=== PATIENT | female | born 1980 | race African-American/Black ===

== ENCOUNTER 2016-08-25 10:32 | Emergency (ER) | payer BC, OTHER ==
[2016-08-25 10:43] VITALS: BP 141/72; PULSE 109; TEMP 99.5; BMI 40.1
[2016-08-25] MEDS ORDERED: ACETAMINOPHEN 1000 MG/100 ML VIAL (NON FORMULARY) IVPB ONE (11:51)
[2016-08-25] MEDS ORDERED: ONDANSETRON 4 MG/2 ML VIAL IVPUSH ONE (11:51)
--- NOTE | 2016-08-25 11:52 | PDOC ---
History of Present Illness - General History Source: Patient Exam Limitations: No Limitations - History of Present Illness Initial Comments: 08/25/16 10:59 The patient is a 36-year-old woman, accompanied by her friend, with a past medical history of diverticulitis, who presents to the emergency department via walk-in for further evaluation of abdominal pain. She states that her symptoms started approximately 1 week ago. She was experiencing left sided abdominal pain that radiates to her back with a 10/10 in severity with noted exacerbation of her pain with minimal musculoskeletal maneuvers. No associated symptoms of nausea, vomiting and diarrhea at the time. Patient was ultimately evaluated at [facility] for which she underwent and abdominal and pelvic CT with contrast which was indicative for diverticulitis. Patient was placed on Flagyl. Post discharge, she reports that her abdominal pain worsen, as she started to develop nausea, diarrhea and vomiting, however, she admits she was drinking alcohol while taking Flagyl. She noted streaks of blood upon emesis. No clots. No hematochezia. No fever, chills, generalized weakness, cough, shortness of breath, chest pain, lightheadedness, dizziness, palpitations. Allergies: No Known Past Surgical History: Caesarian Section x2 Social History: No tobacco or recreational drug use. Occasional EtOH use. Primary Care Physician: N/A <Ayde Schreiber - Last Filed: 08/25/16 15:39> <Magi Stern - Last Filed: 08/25/16 16:15> - General Chief Complaint: Pain Stated Complaint: ABD/BACK PAIN Time Seen by Provider: 08/25/16 10:56 Past History <Ayde Schreiber - Last Filed: 08/25/16 15:39> - Past Medical History Asthma: No Cancer: No Cardiac Disorders: No Diabetes: No GI Disorders: Yes (divertic) HTN: No Seizures: No Thyroid Disease: No - Psycho/Social/Smoking Cessation Hx Anxiety: No Suicidal Ideation: No Smoking History: Never smoked Have you smoked in the past 12 months: No Information on smoking cessation initiated: No Hx Alcohol Use: No Drug/Substance Use Hx: No Substance Use Type: None Hx Substance Use Treatment: No <Magi Stern - Last Filed: 08/25/16 16:15> - Past Medical History Allergies/Adverse Reactions: Allergies Allergy/AdvReac Type Severity Reaction Status Date / Time No Known Allergies Allergy Verified 08/25/16 10:33 Home Medications: Ambulatory Orders Dicyclomine HCl [Bentyl -] 10 mg PO TID PRN #21 capsule 08/25/16 Ondansetron HCl [Zofran] 4 mg PO BID PRN #10 tablet 08/25/16 Review of Systems - Review of Systems Able to Perform ROS?: Yes Comments:: 08/25/16 10:59 GENERAL/CONSTITUTIONAL: No: fever, chills, weakness, loss of appetite. HEAD, EYES, EARS, NOSE AND THROAT: No: change in vision, ear pain, discharge, sore throat, throat swelling. CARDIOVASCULAR: No: chest pain, lightheadedness, palpitations, syncope RESPIRATORY: No: cough, shortness of breath, wheezing, hemoptysis, stridor. GASTROINTESTINAL: Yes: Abdominal Pain. Nausea. Vomiting. Diarrhea. No: rectal bleeding, constipation. GENITOURINARY: No: dysuria, hematuria, frequency, urgency, flank pain. MUSCULOSKELETAL: No: back pain, neck pain, joint pain, muscle swelling or pain SKIN AND BREASTS: No: lesions, pallor, rash or easy bruising. NEUROLOGIC: No: headache, vertigo, paresthesias, weakness ENDOCRINE: No: unexplained weight gain or loss HEMATOLOGIC/LYMPHATIC: No: anemia, easy bleeding, swelling nodes <Ayde Schreiber - Last Filed: 08/25/16 15:39> *Physical Exam - Vital Signs Last Vital Signs Temp Pulse Resp BP Pulse Ox 99.5 F 109 H 18 141/72 98 08/25/16 10:33 08/25/16 10:33 08/25/16 10:33 08/25/16 10:33 08/25/16 10:33 - Physical Exam Comments: 08/25/16 10:59 GENERAL: The patient is in no acute distress. HEAD: Normal with no signs of trauma. EYES: PERRLA, EOMI, sclera anicteric, conjunctiva clear. ENT: Ears normal, nares patent, oropharynx clear without exudates. Moist mucous membranes. NECK: Normal range of motion, supple without lymphadenopathy, JVD, or masses. LUNGS: Breath sounds equal, clear to auscultation bilaterally. No wheezes, and no crackles. HEART:Regular rate and rhythm, normal S1 and S2 without murmur, rub or gallop. ABDOMEN: Soft, there is severe left sided abdominal tenderness to palpation with voluntary guarding. No rebound. Normoactive bowel sounds. EXTREMITIES: Normal range of motion, no edema. No clubbing or cyanosis. No erythema, or tenderness. NEUROLOGICAL: Cranial nerves II through XII grossly intact. Normal speech. No focal neurological deficits. MUSCULOSKELETAL: Back non-tender to palpation, no CVA tenderness SKIN: Warm, Dry, normal turgor, no rashes or lesions noted. <Ayde Schreiber - Last Filed: 08/25/16 15:39> - Vital Signs Last Vital Signs Temp Pulse Resp BP Pulse Ox 99.5 F 109 H 18 141/72 98 08/25/16 10:33 08/25/16 10:33 08/25/16 10:33 08/25/16 10:33 08/25/16 10:33 <Magi Stern - Last Filed: 08/25/16 16:15> Heart Score/ECG Review #1 ECG reviewed & interpreted by me at: 16:04 08/25/16 16:04 Twelve-lead EKG was performed and reviewed by me. There is normal sinus rhythm with a normal rate of 93bpm. The axis is normal. The intervals are normal - pr: 152ms, QRS:78ms, QTc:437ms. There are no ST elevations or depressions. Non specific T wave flattening <Magi Stern - Last Filed: 08/25/16 16:15> ED Treatment Course - LABORATORY CBC & Chemistry Diagram: 08/25/16 12:25 08/25/16 12:25 - RADIOLOGY Radiograph Interpretation: 08/25/16 15:39 EXAM: CT/ABDOMEN PELVIS CT W/O CONTR Interpreted by Dr. Ross Olivo IMPRESSION: Sequential axial images were obtained from the domes of the diaphragm through the symphysis pubis following the administration of oral contrast material. The lung bases are clear. There is a trace amount of pericardial fluid present. The liver is normal in size. It is hypodense in texture consistent with diffuse fatty infiltration. No mass lesions are identified within the liver. The spleen, pancreas, adrenal glands and kidneys demonstrate no significant abnormalities. There is no evidence of intra- abdominal or retroperitoneal lymphadenopathy or fluid collections. There is no evidence of pneumoperitoneum, bowel obstruction or intra-abdominal abscess. There is no CT evidence of acute appendicitis or diverticulitis. Examination of the pelvis demonstrates no evidence of pelvic masses, fluid collections or lymphadenopathy. There is no evidence of acute bony pathology. <SchreiberAyde angel - Last Filed: 08/25/16 15:39> - LABORATORY CBC & Chemistry Diagram: 08/25/16 12:25 08/25/16 12:25 <Magi Stern - Last Filed: 08/25/16 16:15> Medical Decision Making - Medical Decision Making 08/25/16 11:51 A portion of this note was documented by scribe services under my direction. I have reviewed the details of the note, within reason, and agree with the documentation with the following case summary and management plan written by me. Nursing documentation reviewed and incorporated into medical decision making This is a 36-year-old female with no significant past medical history who presents emergency department with a complaint of severe left lower quadrant pain and tenderness. Patient states that her symptoms began approximately 6 days ago. She was seen at an outside hospital where CT scan was performed and was consistent with diverticulitis. After leaving the hospital she was placed on 2 antibiotics (presumably Cipro and Flagyl). Patient did have alcohol 3 days ago with her antibiotic. Since Thursday she's noted vomiting, diarrhea. She's had no fevers or chills. She has noted streaks of blood in both the vomiting and diarrhea. She is concerned because she has had more severe left lower quadrant pain. Her symptoms have not improved despite taking antibiotics. She was supposed to follow up with a GI doctor 2 days ago but could not due to work. Impression: Diverticulitis (simple versus complicated), colitis, stone Will do labs, CT to evaluate for perforation versus abscess Will give IV fluids. Will give Zofran 08/25/16 13:15 Laboratory Tests 08/25/16 08/25/16 12:25 12:25 WBC 8.2 Hgb 12.8 Hct 40.2 Plt Count 257 Neutrophils % 86.9 H D Lymphocytes % 8.9 D Urine Blood Negative Urine Nitrite Negative Ur Leukocyte Esterase Negative 08/25/16 14:59 Laboratory Tests 08/25/16 12:25 Urine Ketones Negative Urine Blood Negative Ur Leukocyte Esterase Negative 08/25/16 15:00 Laboratory Tests 08/25/16 12:25 BUN [address] 08/25/16 16:03 CT of the abdomen and pelvis: 1. Trace pericardial effusion 2. Fatty infiltration of the liver 3. no acute intra-abdominal pathology 08/25/16 16:05 I have explained to patient that she is welcome to stay in the hospital for parenteral medications for nausea vomiting and abdominal pain. Patient would rather go home. Will discharge her with Bentyl and Zofran. I've asked patient to stay hydrated as much as possible 08/25/16 16:07 I discussed the physical exam findings, ancillary test results and final diagnoses with the patient. I answered all of the patient's questions. The patient was satisfied with the care received and felt comfortable with the discharge plan and treatment plan. The patient will call their primary care physician within 24 hours to arrange follow-up and will return to the Emergency Department with any new, persistent or worsening symptoms. <Magi Stern - Last Filed: 08/25/16 16:15> *DC/Admit/Observation/Transfer - Attestations Scribe Attestion: 08/25/16 10:59 Documentation prepared by Ayde Schreiber, acting as medical dosimetrist for Magi Stern MD. <Ayde Schreiber - Last Filed: 08/25/16 15:39> - Discharge Dispostion Admit: No <Magi Stern - Last Filed: 08/25/16 16:15> Diagnosis at time of Disposition: Gastroenteritis, Vomiting and diarrhea - Discharge Dispostion Disposition: HOME Condition at time of disposition: Stable - Prescriptions Prescriptions: Dicyclomine HCl [Bentyl -] 10 mg PO TID PRN #21 capsule PRN Reason: abdominal pain Ondansetron HCl [Zofran] 4 mg PO BID PRN #10 tablet PRN Reason: Nausea - Referrals Referrals: Stefan Noble MD [Staff Physician] - - Patient Instructions Printed Discharge Instructions: DI for Abdominal Pain-Adult, DI for Vomiting - - Adult Additional Instructions: Ms. Ye, Thank you for coming into the ER today. Please continue to take her antibiotics. Please also take Bentyl for pain and Zofran for nausea Please follow up with the primary care physician with in 2-3 days Return to the ER for worsening pain, inability to eat or drink, any other concerns or complaints - Post Discharge Activity Work/School Note: Back to Work
[2016-08-25] MEDS ORDERED: ONDANSETRON 4 MG/2 ML VIAL ONE (12:04)
[2016-08-25] MEDS ORDERED: ACETAMINOPHEN INJECTION 100 ML IVPB ONE (12:04)
[2016-08-25 12:44] LABS: BASOPHIL 0.1 % (0-2.0); EOSINOPHIL 0.2 % (0-4.5); MCH 21.3 pg (25.7-33.7); MEAN CELL VOLUME 66.6 fl (80-96); MEAN PLT VOLUME 8.3 fl (7.5-11.1); NEUTROPHILS 86.9 % (42.8-82.8); PLATELET COUNT 257 K/MM3 (134-434); RDW 15.4 % (11.6-15.6); WHITE BLOOD COUNT 8.2 K/mm3 (4.0-10.0)
[2016-08-25 12:47] LABS: URINE APPEARANCE CLEAR; URINE BILIRUBIN NEGATIVE (NEGATIVE); URINE BLOOD NEGATIVE (NEGATIVE); URINE COLOR YELLOW; URINE GLUCOSE (UA) NEGATIVE (NEGATIVE); URINE KETONE NEGATIVE (NEGATIVE); URINE LEUK ESTERASE NEGATIVE (NEGATIVE); URINE NITRITE NEGATIVE (NEGATIVE); URINE PROTEIN NEGATIVE (NEGATIVE); URINE UROBILINOGEN NEGATIVE E.U./dl (0.2-1.0)
[2016-08-25 13:11] LABS: ALBUMIN 3.7 g/dl (3.4-5.0); ALK PHOS 57 U/L (45-117); ANION GAP 6 (8-16); BILIRUBIN,TOTAL 0.8 mg/dL (0.2-1.0); CALCIUM 8.7 mg/dL (8.5-10.1); CO2 28 mmol/L (21-32); CREATININE 0.8 mg/dL (0.55-1.02); GLUCOSE,RANDOM 91 mg/dL (74-106); SGOT/AST 22 U/L (15-37); SGPT/ALT 31 U/L (12-78)
[2016-08-25 14:19] LABS: ANISOCYTOSIS 2+; HYPOCHROMIA 3+; MICROCYTOSIS 2+; TARGET CELLS 2+
--- NOTE | 2016-08-26 14:14 | EKG ---
Test Reason : Blood Pressure : / mmHG Vent. Rate : 093 BPM Atrial Rate : 093 BPM P-R Int : 152 ms QRS Dur : 078 ms QT Int : 352 ms P-R-T Axes : 053 055 033 degrees QTc Int : 437 ms NORMAL SINUS RHYTHM POSSIBLE LEFT ATRIAL ENLARGEMENT SEPTAL INFARCT , AGE UNDETERMINED ABNORMAL ECG NO PREVIOUS ECGS AVAILABLE Confirmed by TAVARES DOUGLAS MD ([id number]) on 08/26/2016 2:14:23 PM Referred By: Confirmed By:TAVARES DOUGLAS MD
== END 2016-08-25 16:16 | disposition home or self-care (01) ==
LOC: JER 10:32
PROC: 3E033NZ Introduction of Analgesics, Hypnotics, Sedatives into Peripheral Vein, Percutaneous Approach (ICD-10-PCS; principal; 2016-08-25)
PROC: 3E033GC Introduction of Other Therapeutic Substance into Peripheral Vein, Percutaneous Approach (ICD-10-PCS; 2016-08-25)
DX: K52.9 Noninfective gastroenteritis and colitis, unspecified (principal); R11.10 Vomiting, unspecified
CPT/HCPCS: 36415; 74176-TC; 80053; 81003; 85025; 87040; 87086; 93005; 93010; 99283-25